=== PATIENT | female | born 1955 | race Caucasian/White ===

== ENCOUNTER 2023-01-15 16:59 | Emergency (ER) | payer MEDICARE, SELFPAY ==
--- NOTE | ~2023-01-15 | CT_ITS ---
EXAMINATION: NONCONTRAST HEAD CT NONCONTRAST CERVICAL SPINE CT INDICATION INFORMATION: Head injury. Rule out fracture or bleed. COMPARISON: Head CT 06/07/2017 TECHNIQUE: Separate noncontrast CT examinations of the head and cervical spine were performed. Coronal and sagittal images were created for each examination at the technologist workstation. This CT examination was performed using dose optimization techniques as appropriate, variously including the following: *Automated exposure control *Adjustment of mA and/or kV according to patient size (this includes techniques or standardized protocols for targeted exams where dose is matched to indication/reason for exam; i.e. extremities or head) *Use of iterative reconstruction technique DLP: 794 mGy-cm FINDINGS: HEAD: No intra-abdominal or extra-axial fluid collection or hemorrhage. There is a approximately 1.5 cm in transaxial mass at the wolf-white junction of the medial high left parietal lobe with surrounding vasogenic edema. Additional suspected mass or masses in the left cerebellar hemisphere with surrounding vasogenic edema and mass effect with effacement of left cerebellar folia and partial effacement of the fourth ventricle as a result. No midline shift or herniation. Basal cisterns are patent. Wolf-white matter differentiation is maintained. No territorial encephalomalacia. Proportional prominence of the ventricles and sulcal spaces is consistent with moderate volume loss. Patchy periventricular and deep white matter hypoattenuation is consistent with moderate small vessel ischemic changes. No calvarial fracture or soft tissue abnormality. The mastoid air cells and visualized portions of the paranasal sinuses are well aerated. CERVICAL SPINE: Alignment: Mild retrolisthesis at C5-C6. No additional subluxation. Vertebra: No acute fracture. No prevertebral soft tissue swelling. Degenerative disc disease: Multilevel degenerative disc disease most advanced at C5-C6 and C6-C7 with moderate disc height loss, endplate sclerosis and proliferative change. Multilevel bilateral facet arthrosis and uncovertebral spurring. No osseous lesion identified. Other findings: Nonspecific patchy opacity in the visualized posterior right lung apex. Thyroid gland grossly unremarkable. Incompletely imaged right IJ venous catheter. No lymphadenopathy in the visualized portion of the neck. CT/CT cervical spine wo IV con IMPRESSION: 1. Approximately 1.5 cm mass at the wolf-white junction of the high left parietal lobe with surrounding vasogenic edema and additional suspected mass or masses in the left cerebellar hemisphere with surrounding vasogenic edema and mass effect with partial effacement of the fourth ventricle. Findings are concerning for metastatic disease. Patient reportedly has a history of lung adenocarcinoma. Recommend further evaluation with contrast-enhanced MRI of the brain. 2. No intracranial hemorrhage or calvarial fracture. 3. No traumatic subluxation or acute cervical spine fracture. 4. Nonspecific patchy opacity in the visualized posterior right lung apex. This critical result was discussed with Dr. Marcos at 6:11 PM on every 2022 and it was ascertained that the content and urgency of the report was understood at the time of direct communication. 1.
--- NOTE | ~2023-01-15 | CT_ITS ---
EXAMINATION: CT PELVIS WITHOUT CONTRAST CLINICAL INFORMATION: Right hip pain. Rule out occult fracture. COMPARISON: Right hip radiographs performed earlier the same date, CT abdomen and pelvis the 2016 TECHNIQUE: Helical scanning was performed with submillimeter collimation through the pelvis. Sagittal and coronal multiplanar 2-D reconstructions were obtained. This CT examination was performed using dose optimization techniques as appropriate, variously including the following: *Automated exposure control *Adjustment of mA and/or kV according to patient size (this includes techniques or standardized protocols for targeted exams where dose is matched to indication/reason for exam; i.e. extremities or head) *Use of iterative reconstruction technique DLP: 238 mGy-cm FINDINGS: PELVIS: Bladder contains small dependent calcification/stone measuring approximately 6 mm in size posteriorly on the right side. No bladder wall thickening. Few small uterine fibroids are suspected. No free pelvic fluid. Sigmoid diverticulosis. No evidence of acute diverticulitis. No dilated bowel loops or bowel wall thickening. Appendix is visualized and normal. No lymphadenopathy in the [id number]. Mild to moderate vascular calcifications. Right hip joint effusion/lipohemarthrosis noted. OSSEOUS STRUCTURES: Mildly impacted acute right subcapital femoral neck fracture seen on the earlier plain radiographs is redemonstrated on the CT. No dislocation. No additional acute fracture. No suspicious osseous lesion. Small osteophytes at both hips consistent with mild osteoarthritis. Joint spaces are fairly well-maintained. Pubic symphysis and SI joints are congruent and intact. Minimal degenerative change at the sacroiliac joints. CT/CT pelvis wo IV con IMPRESSION: 1. Acute mildly impacted right subcapital femoral neck fracture redemonstrated. Recommend orthopedic consultation if not already obtained. 2. No additional acute fracture identified.
--- NOTE | ~2023-01-15 | XR_ITS ---
EXAMINATION: CHEST RADIOGRAPH AND RIGHT HIP CLINICAL INFORMATION: Fall with right hip pain COMPARISON: Chest radiograph 10/10/2017 TECHNIQUE: Single view chest, single view pelvis with 2 additional views right hip FINDINGS: Chest: At size normal. There is volume loss in the right lung with shift of the mediastinum to the right. A right chest wall port is again seen with its tip at the SVC/RA junction. The previously seen lobular right upper lobe lung mass is not necessarily present but there is a right suprahilar masslike area seen measuring 5.5 x 3.8 cm which could be related to the patient's prior radiation therapy.. Contrast enhanced chest CT would be valuable for further investigation to assess for recurrent tumor versus postsurgical change. Right hip: There is an acute fracture of the right femoral neck with superior subluxation of the distal fragment and varus angulation. No other abnormality is seen. Incidental note made of a right staghorn renal calculus. XR/XR hip RT w [id number] IMPRESSION: 1. Acute right femoral neck fracture. 2. No acute intrathoracic disease. 3. Right upper lobe lung mass as described above. Contrast-enhanced chest CT would be valuable for further investigation to assess for recurrent tumor versus postsurgical change. 4. Incidental note made of right staghorn renal calculus.
--- NOTE | ~2023-01-15 | XR_ITS ---
EXAMINATION: CHEST RADIOGRAPH AND RIGHT HIP CLINICAL INFORMATION: Fall with right hip pain COMPARISON: Chest radiograph 10/10/2017 TECHNIQUE: Single view chest, single view pelvis with 2 additional views right hip FINDINGS: Chest: At size normal. There is volume loss in the right lung with shift of the mediastinum to the right. A right chest wall port is again seen with its tip at the SVC/RA junction. The previously seen lobular right upper lobe lung mass is not necessarily present but there is a right suprahilar masslike area seen measuring 5.5 x 3.8 cm which could be related to the patient's prior radiation therapy.. Contrast enhanced chest CT would be valuable for further investigation to assess for recurrent tumor versus postsurgical change. Right hip: There is an acute fracture of the right femoral neck with superior subluxation of the distal fragment and varus angulation. No other abnormality is seen. Incidental note made of a right staghorn renal calculus. XR/XR chest 1V IMPRESSION: 1. Acute right femoral neck fracture. 2. No acute intrathoracic disease. 3. Right upper lobe lung mass as described above. Contrast-enhanced chest CT would be valuable for further investigation to assess for recurrent tumor versus postsurgical change. 4. Incidental note made of right staghorn renal calculus.
--- NOTE | 2023-01-15 17:15 | ECG_ITS ---
Test Reason : FALL Blood Pressure : / mmHG Vent. Rate : 106 BPM Atrial Rate : 106 BPM P-R Int : 168 ms QRS Dur : 082 ms QT Int : 352 ms P-R-T Axes : 065 048 045 degrees QTc Int : 467 ms Sinus tachycardia Otherwise normal ECG When compared with ECG of 15-JUN-2017 09:25, Vent. rate has increased BY 46 BPM Referred By: Davie Marcos Electronically Signed By:CYNTHIA SERRANO
[2023-01-15 17:39] VITALS: BP 120/60; BP 121/78; PULSE 100; PULSE 113; RESP 22; TEMP 36.6; O2SAT 97; O2SAT 99; BMI 21.9
[2023-01-15] MEDS: Morphine Sulfate 4 MG/ML CARTRIDGE IVPUSH ×3 (17:57→21:18)
[2023-01-15] MEDS: ondansetron HCL 4 MG/2 ML VIAL IVPUSH (17:57)
[2023-01-15 18:04] LABS: MANUAL DIFF FLAG NO
[2023-01-15 18:05] LABS: Basophils Absolute Auto 0.1 X10*3/uL (0.0-0.2); Basophils Percent Auto 0.4 % (0-2); Eosinophils Absolute Auto 0.1 X10*3/uL (0.0-0.4); Eosinophils Percent Auto 0.8 % (0-4); Hematocrit 34.5 % (37.0-47.0); Hemoglobin 11.2 g/dl (12.0-16.0); Imm Gran Abs Auto 0.11 X10*3/uL (0.00-0.03); Imm Gran Pct Auto 0.7 % (0.0-0.4); Lymphocytes Absolute Auto 1.4 X10*3/uL (1.2-4.9); Mean Corpuscular HGB Conc 32.5 g/dl (31.0-35.0); Mean Corpuscular Hemoglobin 27.9 pg (27.0-33.0); Mean Corpuscular Volume 85.8 fL (80.0-98.0); Mean Platelet Volume 8.6 fL (9.4-12.3); Monocytes Absolute Auto 1.3 X10*3/uL (0.1-1.2); Monocytes Percent Auto 7.5 % (2-11); Neutrophils Absolute Auto 13.9 x10*3/uL (2.0-8.3); Neutrophils Percent Auto 82.6 % (45-73); Platelet Count 437 X10*3/uL (160-400); Red Blood Count 4.02 X10*6/uL (4.20-5.50); White Blood Count 16.9 X10*3/uL (4.8-10.8)
[2023-01-15 18:07] VITALS: BP 128/74; PULSE 99; RESP 20; O2SAT 96
[2023-01-15 18:18] LABS: Prothrombin Time 11.2 SEC (10.0-13.1)
[2023-01-15 18:20] LABS: Partial Thromboplastin Time 26.3 SEC (26.0-36.4)
--- NOTE | 2023-01-15 18:32 | ED.FALL ---
HPI - Fall General Chief Complaint: Fall Stated Complaint: R HEAD LAC/VOMIT S/P FALL PER EMS Time Seen by Provider: 01/15/23 17:14 Source: patient and EMS Mode of arrival: EMS Limitations: no limitations History of Present Illness HPI Narrative: 67-year-old female who presents emergency department for evaluation of a fall in her bathroom with head injury and right injury. The patient states that she was in her bathroom, she was sitting on the toilet and urinated. She then got up and she states that she is not supposed to smoke cigarettes but she sneaked a cigarette was smoking in the bathroom. She states that she then became dizzy and fell. She struck her head and had a laceration to her right lateral periorbital area. She also developed severe pain in her right hip after falling. An ambulance was called. The patient initially refused transport and the paramedics contacted me for medical control. After discussion with the paramedics and the patient I was able to convince her to come to the hospital for evaluation. At the time of evaluation she is complaining of severe right hip pain which is worse with straightening her leg. She denies headache but she does have nausea with no vomiting. She denied numbness or weakness. She states that she was not ill in any way prior to falling. Patient's family states that the patient has MS and she has difficulty walking and should be using a walker. She often has dizziness which may have been getting worse over the past 1-2 weeks. 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 Xavier Asencio at [facility]. Related Data Allergies Allergy/AdvReac Type Severity Reaction Status Date / Time bee pollen [Bee Stings] Allergy Unknown ANAPHYLAXIS Unverified 08/07/20 15:12 Bee's Allergy Unknown swelling Uncoded 09/04/19 00:00 Review of Systems Review of Systems: Yes all other systems are reviewed and are negative [facility] Past Medical History [facility] Narrative: Past medical history: COPD, right upper lobe adenocarcinoma, MS uses walker, high cholesterol, kidney stones. Social history: She does smoke cigarettes. She denies alcohol use. She denies drug use. Medical History (Updated 01/15/23 @ 22:15 by Davie Marcos MD) Lung cancer Social History Social History Alcohol intake: never Smoked in Last 30 Days: Yes Use of substances other than those prescribed or required for medical reasons: No Advance Directives: No Advance Directives Information Provided: Yes Physical Exam Vital Signs: Vital Signs: Last Vital Signs Temp 97.8 F 01/15/23 17:39 Pulse 113 H 01/15/23 19:48 Resp 15 01/15/23 19:48 BP 134/77 01/15/23 19:48 Pulse Ox 96 01/15/23 19:48 O2 Del Method 01/15/23 19:48 BMI result Body Mass Index 21.9 Const: Other: Awake, alert, female patient, she appears to be in distress secondary to her hip pain, she answers all questions appropriately HEENT: Other: Patient has a 3.5 cm linear laceration to lateral aspect of the right orbit, this is not actively bleeding. Head: Yes normal to inspection Ears: external ears normal General nose exam: Normal external nose present Face and sinus: Yes normal facial exam Mouth: Normal oral and palatal mucosa present Throat: Yes posterior oropharynx normal Eyes: General: appearance normal, both eyes and all related structures Pupils: Equal, round and reactive pupils present Neck: Neck: Yes normal visual inspection, Yes no lymphadenopathy, Yes trachea midline and Yes supple Chest: Chest palpation & inspection: normal inspection of the chest and normal palpation of entire chest wall Resp: Effort & Inspection: normal respiratory effort and able to speak in complete sentences Auscultation: clear to auscultation bilaterally Cardio: Rate: regular rate Rhythm: regular rhythm Heart sounds: S1 normal heart sound present, S2 normal heart sound present and no murmurs GI: Inspection: Yes normal to inspection Palpation (GI): Soft to palpation, nontender and no guarding Auscultation: normal bowel sounds : General: Yes no CVA tenderness Back/Spine/Pelvis: Back: no CVA tenderness Skin: General skin exam: no rashes or lesions noted Neuro: Cranial nerves: Yes CN's II-XII intact bilaterally and Yes Equal, round and reactive pupils present Cognition (Neuro): normal cognition Motor exam (neuro): 5/5 motor strength present throughout Extrem: Other: The patient feels most comfortable with her hips flexed and when I try to straighten her right hip she has significant pain, she has pain with palpation over her hip joint, her extremities neurovascular intact Psych: Appearance: grossly normal Speech and movement: Normal speech and movement present Affect: normal affect Attitude: cooperative Thought process: Normal thought process present Thought content: Normal thought content present Medications Administered Discontinued Medications Generic Name Dose Route Start Last Admin Trade Name Jimmy PRN Reason Stop Dose Admin Dexamethasone Sodium Phosphate 10 mg 01/15/23 19:04 01/15/23 19:38 Dexamethasone Sod Phosphate 10 Mg/Ml Vial IVPUSH 01/15/23 19:05 10 mg ONCE ONE Administration Promethazine HCl 12.5 mg/ 50.5 mls @ 202 mls/hr 01/15/23 19:04 01/15/23 19:54 Sodium Chloride IV 01/15/23 19:05 Infused ONCE ONE Infusion Promethazine HCl 12.5 mg/ 50.5 mls @ 202 mls/hr 01/15/23 21:01 01/15/23 21:44 Sodium Chloride IV 01/15/23 21:02 Infused ONCE ONE Infusion Morphine Sulfate 4 mg 01/15/23 17:27 01/15/23 17:57 Morphine Sulfate 4 Mg/Ml Cartridge IVPUSH 01/15/23 17:28 4 mg ONCE STA Administration Protocol Morphine Sulfate 4 mg 01/15/23 19:04 01/15/23 19:38 Morphine Sulfate 4 Mg/Ml Cartridge IVPUSH 01/15/23 19:05 4 mg ONCE STA Administration Protocol Morphine Sulfate 4 mg 01/15/23 21:01 01/15/23 21:18 Morphine Sulfate 4 Mg/Ml Cartridge IVPUSH 01/15/23 21:02 4 mg ONCE STA Administration Protocol Ondansetron HCl 4 mg 01/15/23 17:27 01/15/23 17:57 Ondansetron Hcl 4 Mg/2 Ml Vial IVPUSH 01/15/23 17:28 4 mg ONCE ONE Administration Medical Decision Making Medical Decision Making MDM Narrative: 67-year-old female with history of COPD and right upper lobe adenocarcinoma of the lung which is been treated with radiation and chemotherapy, who presents emergency department for evaluation of lightheadedness, dizziness and fall in her bathroom prior to coming to the emergency department. Exam did reveal a laceration to the right lateral orbit however she refused suture repair or skin adhesive repair. Patient believes that she received a tetanus shot 2 years prior and is up-to-date. Patient is having pain in her right hip and is having difficulty straightening her right leg secondary to pain. I did order laboratory evaluation to include CBC, CMP, PT/INR, PTT, troponin, CK, alcohol, urinalysis, COVID-19, influenza, right hip x-ray, CT of the hip/pelvis. 2034: My independent interpretation patient's laboratory evaluation as follows: Elevated WBC 99842, mild anemia with an H&H of 11.2 and 34.5, elevated platelet count of 110718. PT/INR , PTT normal. Chloride elevated 110, glucose elevated 139. CPK normal 23. High sensitive troponin I below detectable limits. ETOH below detectable limits. COVID-19, influenza negative. Patient received morphine 4 mg IV x2, Zofran 4 mg IV x1 and Phenergan 12.5 mg IV x1 with improvement of her symptoms. X-ray of the right hip and pelvis revealed a right femoral neck fracture. CT scan of the hip and pelvis revealed no pelvic fracture or bone metastatic disease. CT scan of the brain was concerning for to metastatic lesions with vasogenic edema and compression of the ventricle with no shift. I did discuss these findings with Dr. Galindo who was covering for the patient's oncologist Dr. Xavier Asencio. Dr. Galindo did agree with dexamethasone 10 mg IV. He felt that the patient should be transferred to [facility] for evaluation of neurosurgery and radiation oncology. We do not have the services here at this hospital. I will discuss transfer with the [facility] transfer center. 2100: Patient required a 3rd dose of morphine 4 mg IV and a 2nd dose of Phenergan 12.5 mg IV for her right hip pain and nausea. 2211: I did discuss the patient's presentation with the admitting hospitalist at [facility], Dr. Edwards and he did accept the patient in transfer. Differential Diagnosis Differential diagnosis includes was not limited to electrolyte abnormalities, skull fracture, intracranial bleed, right hip fracture, metastatic disease Lab Data [facility] Lab Attestation statement: I reviewed the patient's lab results. Please see [facility] for my discussion 01/15/23 17:56 01/15/23 17:56 Labs: Lab Results 01/15/23 01/15/23 01/15/23 Range/Units 17:56 17:56 17:56 WBC 16.9 H (4.8-10.8) X10*3/uL RBC 4.02 L (4.20-5.50) X10*6/uL Hgb 11.2 L (12.0-16.0) g/dl Hct 34.5 L (37.0-47.0) % MCV 85.8 (80.0-98.0) fL MCH 27.9 (27.0-33.0) pg MCHC 32.5 (31.0-35.0) g/dl RDW 15.0 (11.0-16.0) % Plt Count 437 H (160-400) X10*3/uL MPV 8.6 L (9.4-12.3) fL Immature Gran % (Auto) 0.7 H (0.0-0.4) % Neut % (Auto) 82.6 H (45-73) % Lymph % (Auto) 8.0 L (20-40) % [place] % (Auto) 7.5 (2-11) % Eos % (Auto) 0.8 (0-4) % Baso % (Auto) 0.4 (0-2) % Lymph # (Auto) 1.4 (1.2-4.9) X10*3/uL [place] # (Auto) 1.3 H (0.1-1.2) X10*3/uL Eos # (Auto) 0.1 (0.0-0.4) X10*3/uL Baso # (Auto) 0.1 (0.0-0.2) X10*3/uL Abs Immat Gran (auto) 0.11 H (0.00-0.03) X10*3/uL Absolute Neuts (auto) 13.9 H (2.0-8.3) x10*3/uL Absolute Nucleated RBC 0.000 (0.0-0.012) X10*3/uL Nucleated RBC % (auto) 0.0 (0.0-0.2) /100WBC PT 11.2 (10.0-13.1) SEC INR 1.0 (0.9-1.1) APTT 26.3 (26.0-36.4) SEC Sodium 143 (135-145) mmol/L Potassium 3.8 (3.3-5.1) mmol/L Chloride 110 H (96-108) mmol/L Carbon Dioxide 22 (22-29) mmol/L Anion Gap 15 (12-20) BUN 15 (9-16) mg/dL Creatinine 0.79 (0.5-1.4) mg/dL Estim Creat Clear Calc 53.9 Estimated GFR > 60 Random Glucose 139 H (60-115) mg/dL Calcium 9.2 (8.4-10.2) mg/dL Total Bilirubin 0.4 (0.0-1.0) mg/dL AST 19 (5-31) U/L ALT 16 (0-31) U/L Alkaline Phosphatase 88 (39-117) U/L Total Creatine Kinase 23 L (26-140) U/L Troponin I High Sens (<3.5-17.0) ng/L Total Protein 6.5 (6.5-8.0) g/dL Albumin 4.0 (3.5-5.0) g/dL Lipase 32 (8-78) U/L Ethyl Alcohol < 10 mg/dL COVID-19 (YEHUDA) (Negative) COVID-19 Clin Com Influenza Type A (NATHALIA) (Negative) Influenza Type B (NATHALIA) (Negative) Influenza A & B Note 01/15/23 01/15/23 01/15/23 Range/Units 17:56 17:56 17:56 WBC (4.8-10.8) X10*3/uL RBC (4.20-5.50) X10*6/uL Hgb (12.0-16.0) g/dl Hct (37.0-47.0) % MCV (80.0-98.0) fL MCH (27.0-33.0) pg MCHC (31.0-35.0) g/dl RDW (11.0-16.0) % Plt Count (160-400) X10*3/uL MPV (9.4-12.3) fL Immature Gran % (Auto) (0.0-0.4) % Neut % (Auto) (45-73) % Lymph % (Auto) (20-40) % Yuba % (Auto) (2-11) % Eos % (Auto) (0-4) % Baso % (Auto) (0-2) % Lymph # (Auto) (1.2-4.9) X10*3/uL [place] # (Auto) (0.1-1.2) X10*3/uL Eos # (Auto) (0.0-0.4) X10*3/uL Baso # (Auto) (0.0-0.2) X10*3/uL Abs Immat Gran (auto) (0.00-0.03) X10*3/uL Absolute Neuts (auto) (2.0-8.3) x10*3/uL Absolute Nucleated RBC (0.0-0.012) X10*3/uL Nucleated RBC % (auto) (0.0-0.2) /100WBC PT (10.0-13.1) SEC INR (0.9-1.1) APTT (26.0-36.4) SEC Sodium (135-145) mmol/L Potassium (3.3-5.1) mmol/L Chloride (96-108) mmol/L Carbon Dioxide (22-29) mmol/L Anion Gap (12-20) BUN (9-16) mg/dL Creatinine (0.5-1.4) mg/dL Estim Creat Clear Calc Estimated GFR Random Glucose (60-115) mg/dL Calcium (8.4-10.2) mg/dL Total Bilirubin (0.0-1.0) mg/dL AST (5-31) U/L ALT (0-31) U/L Alkaline Phosphatase (39-117) U/L Total Creatine Kinase (26-140) U/L Troponin I High Sens < 3.5 (<3.5-17.0) ng/L Total Protein (6.5-8.0) g/dL Albumin (3.5-5.0) g/dL Lipase (8-78) U/L Ethyl Alcohol mg/dL COVID-19 (YEHUDA) Negative (Negative) COVID-19 Clin Com See Note Influenza Type A (NATHALIA) Negative (Negative) Influenza Type B (NATHALIA) Negative (Negative) Influenza A & B Note See Note Radiology Impression Discussion of test interpretation with radiology: I discussed test interpretation with the radiologist Radiologist Impression: EXAMINATION: NONCONTRAST HEAD CT NONCONTRAST CERVICAL SPINE CT INDICATION INFORMATION: Head injury. Rule out fracture or bleed. COMPARISON: Head CT 06/07/2017 TECHNIQUE: Separate noncontrast CT examinations of the head and cervical spine were performed. Coronal and sagittal images were created for each examination at the technologist workstation. This CT examination was performed using dose optimization techniques as appropriate, variously including the following: *Automated exposure control *Adjustment of mA and/or kV according to patient size (this includes techniques or standardized protocols for targeted exams where dose is matched to indication/reason for exam; i.e. extremities or head) *Use of iterative reconstruction technique DLP: 794 mGy-cm FINDINGS: HEAD: No intra-abdominal or extra-axial fluid collection or hemorrhage. There is a approximately 1.5 cm in transaxial mass at the wolf-white junction of the medial high left parietal lobe with surrounding vasogenic edema. Additional suspected mass or masses in the left cerebellar hemisphere with surrounding vasogenic edema and mass effect with effacement of left cerebellar folia and partial effacement of the fourth ventricle as a result. No midline shift or herniation. Basal cisterns are patent. Wolf-white matter differentiation is maintained. No territorial encephalomalacia. Proportional prominence of the ventricles and sulcal spaces is consistent with moderate volume loss. Patchy periventricular and deep white matter hypoattenuation is consistent with moderate small vessel ischemic changes. No calvarial fracture or soft tissue abnormality. The mastoid air cells and visualized portions of the paranasal sinuses are well aerated. CERVICAL SPINE: Alignment: Mild retrolisthesis at C5-C6. No additional subluxation. Vertebra: No acute fracture. No prevertebral soft tissue swelling. Degenerative disc disease: Multilevel degenerative disc disease most advanced at C5-C6 and C6-C7 with moderate disc height loss, endplate sclerosis and proliferative change. Multilevel bilateral facet arthrosis and uncovertebral spurring. No osseous lesion identified. Other findings: Nonspecific patchy opacity in the visualized posterior right lung apex. Thyroid gland grossly unremarkable. Incompletely imaged right IJ venous catheter. No lymphadenopathy in the visualized portion of the neck. CT/CT head/brain wo IV con IMPRESSION: 1. Approximately 1.5 cm mass at the wolf-white junction of the high left parietal lobe with surrounding vasogenic edema and additional suspected mass or masses in the left cerebellar hemisphere with surrounding vasogenic edema and mass effect with partial effacement of the fourth ventricle. Findings are concerning for metastatic disease. Patient reportedly has a history of lung adenocarcinoma. Recommend further evaluation with contrast-enhanced MRI of the brain. 2. No intracranial hemorrhage or calvarial fracture. 3. No traumatic subluxation or acute cervical spine fracture. 4. Nonspecific patchy opacity in the visualized posterior right lung apex. This critical result was discussed with Dr. Marcos at 6:11 PM on every 2022 and it was ascertained that the content and urgency of the report was understood at the time of direct communication. Dictated By:Rick ThompsonSigned By:<Electronically signed by Rick Thompson in [place]>01/15/231813 Single view chest, single view pelvis with 2 additional views right hip IMPRESSION: 1. Acute right femoral neck fracture. 2. No acute intrathoracic disease. 3. Right upper lobe lung mass as described above. Contrast-enhanced chest CT would be valuable for further investigation to assess for recurrent tumor versus postsurgical change. 4. Incidental note made of right staghorn renal calculus. Dictated By:Black Garcia MDSigned By:<Electronically signed by Black Garcia MD in OV>01/15/231810 EXAMINATION: CT PELVIS WITHOUT CONTRAST CLINICAL INFORMATION: Right hip pain. Rule out occult fracture. COMPARISON: Right hip radiographs performed earlier the same date, CT abdomen and pelvis the 2016 TECHNIQUE: Helical scanning was performed with submillimeter collimation through the pelvis. Sagittal and coronal multiplanar 2-D reconstructions were obtained. This CT examination was performed using dose optimization techniques as appropriate, variously including the following: *Automated exposure control *Adjustment of mA and/or kV according to patient size (this includes techniques or standardized protocols for targeted exams where dose is matched to indication/reason for exam; i.e. extremities or head) *Use of iterative reconstruction technique DLP: 238 mGy-cm FINDINGS: PELVIS: Bladder contains small dependent calcification/stone measuring approximately 6 mm in size posteriorly on the right side. No bladder wall thickening. Few small uterine fibroids are suspected. No free pelvic fluid. Sigmoid diverticulosis. No evidence of acute diverticulitis. No dilated bowel loops or bowel wall thickening. Appendix is visualized and normal. No lymphadenopathy in the [id number]. Mild to moderate vascular calcifications. Right hip joint effusion/lipohemarthrosis noted. OSSEOUS STRUCTURES: Mildly impacted acute right subcapital femoral neck fracture seen on the earlier plain radiographs is redemonstrated on the CT. No dislocation. No additional acute fracture. No suspicious osseous lesion. Small osteophytes at both hips consistent with mild osteoarthritis. Joint spaces are fairly well-maintained. Pubic symphysis and SI joints are congruent and intact. Minimal degenerative change at the sacroiliac joints. CT/CT pelvis wo IV con IMPRESSION: 1. Acute mildly impacted right subcapital femoral neck fracture redemonstrated. Recommend orthopedic consultation if not already obtained. 2. No additional acute fracture identified. Independent Historian Clinical information obtained from an independent historian. History obtained from or confirmed by: Spouse and Other (Son) External Record Review External record reviewed: Outpatient record ([facility] Oncology note) Discharge Plan Discharge Clinical Impression: Fall, Closed fracture of neck of right femur, Brain metastasis, Facial laceration Patient Disposition: [facility] Transfer Details: [facility]
[2023-01-15 18:33] LABS: Alanine Aminotransferase 16 U/L (0-31); Alkaline Phosphatase 88 U/L (39-117); Anion Gap 15 (12-20); Aspartate Amino Transferase 19 U/L (5-31); Bilirubin Total 0.4 mg/dL (0.0-1.0); Blood Urea Nitrogen 15 mg/dL (9-16); Calcium 9.2 mg/dL (8.4-10.2); Carbon Dioxide 22 mmol/L (22-29); Chloride 110 mmol/L (96-108); Creatinine Clr Calc Pharmacy 53.9; Estimated Glomerular Filt Rate > 60; Ethanol < 10 mg/dL; Glucose Random 139 mg/dL (60-115); Lipase 32 U/L (8-78); Potassium 3.8 mmol/L (3.3-5.1); Sodium 143 mmol/L (135-145); Total Protein 6.5 g/dL (6.5-8.0)
[2023-01-15 18:47] LABS: COVID-19 Test Negative (Negative); IDNOW Serial# 16C4AD1C; IDNOW Serial# BCCEAD1C; Influenza A Negative (Negative); Influenza B2 Negative (Negative)
[2023-01-15 18:48] LABS: Troponin-I High Sensitivity < 3.5 ng/L (<3.5-17.0)
[2023-01-15] MEDS: dexAMETHasone sod phosphate 10 MG/ML VIAL IVPUSH (19:38)
[2023-01-15 19:48] VITALS: BP 134/77; PULSE 113; RESP 15; O2SAT 96
--- NOTE | 2023-01-15 20:44 | MHC.EDTECH ---
Call out to [facility] @2034 to transfer patient Passed call to Faxed facesheet @[phone]
--- NOTE | 2023-01-15 21:23 | PC.NURSE ---
Pt medicated for pain and nausea as ordered. Re-positioned to comfort. Pt reports last tetanus was 2 years ago during an admission at [facility]. MD kelly.
--- NOTE | 2023-01-15 22:10 | MHC.EDTECH ---
Purewick used for bladder incontinence.
--- NOTE | 2023-01-15 22:36 | MHC.EDTECH ---
Patient is accepted to [facility] B BED 442 is the accepting the Doctor nurse to nurse [phone]
--- NOTE | 2023-01-15 22:53 | PC.NURSE ---
RN to RN report given to nurse Savage from [facility]. Pt being transferred and aware of plan of care.
== END 2023-01-15 23:37 | disposition short-term general hospital (02) ==
PROVIDERS: Emergency Provider Emergency Medicine Emergency Medical Services; PCP Internal Medicine
DX: C34.12 Malignant neoplasm of upper lobe, left bronchus or lung (principal); C79.31 Secondary malignant neoplasm of brain; S72.001A Fracture of unspecified part of neck of right femur, initial encounter for closed fracture; S01.111A Laceration without foreign body of right eyelid and periocular area, initial encounter; W17.89XA Other fall from one level to another, initial encounter; N20.0 Calculus of kidney; M25.451 Effusion, right hip; M50.323 Other cervical disc degeneration at C6-C7 level; Z20.822 Contact with and (suspected) exposure to COVID-19; F17.210 Nicotine dependence, cigarettes, uncomplicated; G35 Multiple sclerosis; J44.9 Chronic obstructive pulmonary disease, unspecified; Z85.118 Personal history of other malignant neoplasm of bronchus and lung; Y93.89 Activity, other specified; Y92.012 Bathroom of single-family (private) house as the place of occurrence of the external cause; Y99.9 Unspecified external cause status
CPT/HCPCS: 70450; 71045; 72125; 72192; 73502; 80053; 82077; 82550; 83690; 84484; 85025; 85610; 85730; 87502; 87635; 93005; 96365; 96375; 96376; 99285; J1100; J2270; J2405; J2550